=== PATIENT | female | born 1990 | race Two or more races ===

== ENCOUNTER 2019-01-08 11:50 | Emergency (ER) | payer OTHER ==
[~2019-01-08] VITALS: Ht 154.9 cm; Wt 95.3 kg
[2019-01-08 12:11] VITALS: BP 120/76
== END 2019-01-08 13:17 | disposition home or self-care (01) ==
LOC: ER 11:50
DX: J02.9 Acute pharyngitis, unspecified (principal)
CPT/HCPCS: 71046